=== PATIENT | male | born 1990 | race Caucasian/White ===

== ENCOUNTER 2018-07-22 05:33 | Day surgery (SDC) | payer OTHER ==
--- NOTE | 2018-07-21 20:32 | HP ---
HISTORY AND PHYSICAL: DATE OF ADMISSION: 07/22/18 CHIEF COMPLAINT: Jayden follows up for his left knee. HISTORY OF PRESENT ILLNESS: He is status post ACL reconstruction with hamstring and medial meniscus repair. He presented a few weeks ago after an MRI because he had a buckling. He said that he was doing okay, but it started to buckle and it locked on him a few days ago. He has been having some difficulty getting back to activities. It was recently starting to get better. He has pain with weightbearing. He does not have full range of motion. He has an effusion. He denies any calf pain and shortness of breath. We talked about treating this surgically if he has issues. PAST MEDICAL HISTORY: Negative. PAST SURGICAL HISTORY: Left knee ACL reconstruction with medial meniscus repair. ALLERGIES: NKDA FAMILY HISTORY: Negative. 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 Denies tobacco or alcohol. Exercises regularly. He is from [place]. Right-hand dominant. REVIEW OF SYSTEMS: A 14-point review of systems was reviewed with the patient, significant only for the above complaint in the left knee, otherwise negative for fever, chills, no history of DVT. No chest pain, shortness of breath, otherwise remainder of systems is negative. PHYSICAL EXAMINATION GENERAL: He is in no acute distress. He is well developed and well nourished. He is alert and oriented x3. Pleasant mood and normal affect. He walks with an antalgic gait, cannot fully weight bear. HEENT: EOMI. CHEST: Clear to auscultation. HEART: Regular rate and rhythm. ABDOMEN: Soft, nontender. EXTREMITIES: Examination of the left leg demonstrates he has an effusion. He has a well-healed incision, tender about the medial joint line in range of motion. He is unable to fully extend. His range of motion is 5 to about 90 degrees. He has had stable Beatriz, negative posterior drawer, positive Alcides sign. Sensate to light touch about the first dorsal webspace, medial, lateral, dorsal, and plantar foot, 2+ PT pulse. Calf is soft and nontender. DIAGNOSTIC STUDIES: MRI was reviewed again. It demonstrates that the ACL is intact. He has a possible meniscus tear. ASSESSMENT AND PLAN: He has a locked knee with suspected bucket-handle medial meniscus tear. At this point I would recommend surgery, which would be left knee arthroscopy with meniscus repair. We talked about the risks and benefits of surgery. I told him that there is a very little chance his ACL is torn, but if it is we can always address it the same time and plan for autograft. I think this is a highly unlikely. I will take care for him early in the morning tomorrow. Risks and benefits were discussed at length and included, but are not limited to, bleeding; infection; damage to nerves, vessels, surrounding structures; wound nonhealing; persistent pain; need for further surgery, scarring, stiffness, incomplete relief of symptoms and risk of anesthesia, risk of DVT. [id number]/[facility] #: [id number] MERON
[~2018-07-22 05:33] MED LIST: Buffered Lidocaine 1% SYRIN* 1 ML/SYRINGE INTRADERM ONE
[2018-07-22] MEDS ORDERED: Dexamethasone IV* 4 MG/ML 1 ML (4 MG) ONE (05:56)
[2018-07-22] MEDS ORDERED: ceFAZolin 2 GM PREMIX in ORs 2 GM/50 ML BAG IVPB ONE (05:56)
[2018-07-22] MEDS ORDERED: Famotidine IV* 10 MG/ML 2 ML (20 mg) ONE (05:56)
[2018-07-22] MEDS ORDERED: Dexamethasone IV* 4 MG/ML 1 ML (4 MG) IV SLOW PU ONE (06:00)
[2018-07-22] MEDS ORDERED: Famotidine IV* 10 MG/ML 2 ML (20 mg) IV ONE (06:00)
[2018-07-22] MEDS ORDERED: Lactated Ringers 1000 ML Bag* 1,000 ML IV SCH (06:00)
[2018-07-22] MEDS ORDERED: Scopolamine 1.5 mg* PATCH ONE (06:45)
[2018-07-22] MEDS ORDERED: fentaNYL* 50 MCG/ML 2 ML VIAL (100 MCG VIAL) ONE ×3 (06:53→11:43)
[2018-07-22] MEDS ORDERED: Midazolam* 1 MG/ML 2 ML VIAL (2 MG) ONE (06:53)
[2018-07-22] MEDS ORDERED: Propofol* 500 MG/50 ML BTL ONE ×2 (06:55→10:14)
[2018-07-22] MEDS ORDERED: Scopolamine 1.5 mg* PATCH TRANSDERM SCH (07:00)
[2018-07-22] MEDS ORDERED: Ketorolac INJ* 30 MG/ML 1 ML VIAL ONE (11:01)
[2018-07-22] MEDS ORDERED: Ondansetron INJ* 2 MG/ML VIAL ONE (11:01)
[2018-07-22] MEDS ORDERED: fentaNYL* 50 MCG/ML 2 ML VIAL (100 MCG VIAL) IV PRN (11:37)
[2018-07-22] MEDS ORDERED: DiMENhydriNATE IV* 50 MG/ML VIAL IV PUSH PRN (11:37)
[2018-07-22] MEDS ORDERED: Naloxone* 0.4 MG/ML 1 ML VIAL IV PRN (11:37)
[2018-07-22] MEDS ORDERED: HYDROmorphone INJ1* 1 MG/ML SYRINGE IV PRN (11:37)
[2018-07-22] MEDS ORDERED: oxyCODONE/Acetamin 5/325 MG* TAB ONE (12:16)
[2018-07-22 13:10] VITALS: BP 142/85
--- NOTE | 2018-07-22 20:49 | OP ---
DATE OF OPERATION: 07/22/18 - [facility] DATE OF : 86 SURGEON: Solomon Rivas MD GARBAGE PICK UP WORKER: SAMUEL Lovnig. An unit assistant was needed throughout the case to help with positioning, retraction and was utilized throughout all portions of the case, also because there was possibly a meniscus repair versus ACL reconstruction. ANESTHESIOLOGIST: Dr. Riojas. ANESTHESIA: General. PRE-OP DIAGNOSIS: Left knee medial meniscus tear with possible tearing of the ACL reconstruction. POST-OP DIAGNOSIS: Intact ACL with medial bucket handle meniscus tear and lateral partial tearing. OPERATIVE PROCEDURE: Left knee arthroscopy with a partial medial meniscectomy and partial lateral meniscectomy, intact ACL and synovectomy. COMPLICATIONS: None. ESTIMATED BLOOD LOSS: Minimal. DESCRIPTION OF PROCEDURE: The patient was greeted in the preoperative area by the attending surgeon. Correct extremity was marked and consent was confirmed. The patient was brought back to the operating suite where he was placed in a supine position on the operating table and then underwent general anesthesia and LMA intubation after which he was appropriately positioned in the bed. Because we suspected he may have an ACL injury, we prepared him like a typical ACL with a lateral post, an unsterile tourniquet and freeman bag at the end of the bed. The left leg was then prepped and draped in the usual sterile fashion beginning with chlorhexidine soap, scrub and alcohol wipe and a final prep with ChloraPrep. After appropriate surgical pause indicating site, side, procedure and administration of antibiotics, the knee was intraarticularly injected with 1% lidocaine with epinephrine. The anterolateral portal was made sharply with a 11 -blade, scope was introduced to the joint, joint was examined. There was obvious bucket handle meniscus tear that appeared to have no healing and more chronicity in appearance. The quality of tissue was poor. The ACL appeared to be intact. There was no evidence of a large cyclops lesion. There was no evidence of tearing. The graft had not fully incorporated; however, but it appeared to be intact. There was synovitis anteriorly. Anteromedial portal was made in an outside-in fashion. The biters and hector were then used to do a partial meniscectomy. This is a unique type of bucket handle but parrot beak type of tear. It likely incorporated part of his old repair, although it was far worse than his old meniscus tear. The biters and hector were used to debride this back. There were grade 0 to 1 changes in the medial femoral condyle and medial plateau. Once this was completed, attention was directed to the lateral meniscus. There was some mild fraying and a small radial split tear. This was debrided back using hector and biters. The ACL was examined again. There was some scar tissue anteriorly, but not a definitive cyclops lesion, but the graft was probed and found to be intact. The patellofemoral joint had grade 0 to 1 changes. The medial and lateral gutters were intact. There was abundant synovitis and plica, which was debrided back using the hector and the electrocautery device. Final images were obtained. The wounds were copiously irrigated. The knee was thoroughly lavaged to remove any loose fluid or debris. The portals were irrigated and then closed with 3-0 nylon in an interrupted fashion. Knee was intraarticularly injected with 0.2% ropivacaine. Sterile dressings were applied as well as a Cryocuff. He was awoken from the anesthesia and transferred to the PACU in stable condition. POSTOPERATIVE PLAN: He will be weightbearing as tolerated, crutches for the first 3 to 5 days, he will work on range of motion. He will be discharged on pain medication. DVT prophylaxis considered but deferred due to no previous personal or family history. I will see the patient back in 10 to 14 days. He will be on antibiotics since his revision surgery. [id number]/[facility] #: [id number] MERON
== END 2018-07-22 13:04 | disposition home or self-care (01) ==
LOC: OR 05:33
PROVIDERS: ATTEND Orthopaedic Surgery
DX: S83.212A Bucket-handle tear of medial meniscus, current injury, left knee, initial encounter (principal); S83.282A Other tear of lateral meniscus, current injury, left knee, initial encounter; X50.0XXA Overexertion from strenuous movement or load, initial encounter; Y92.9 Unspecified place or not applicable; Z68.35 Body mass index [BMI] 35.0-35.9, adult; Z87.891 Personal history of nicotine dependence
CPT/HCPCS: A9270-GY; J0690; J1100; J1885; J2250; J2405; J2704; J3010